=== PATIENT | male | born 1945 | race Caucasian/White ===

== ENCOUNTER 2019-10-06 06:06 | Inpatient (IN) ==
[2019-10-06] MEDS ORDERED: CeFAZolin Syr 2,000MG/20 ML 2,000 MG/20 ML SYRINGE IVPB ONE (06:22)
[2019-10-06] MEDS ORDERED: Ringers Solution, Lactated 1,000 ML IVC SCH ×2 (06:30→09:47)
[2019-10-06] MEDS ORDERED: *HR* Succinylcholine 200 MG/10 ML VIAL IVP ONE (07:06)
[2019-10-06] MEDS ORDERED: Lidocaine HCL 4 ML Topical Solution (Laryng-O-Jet Kit Sterile Pak) TP ONE (07:06)
[2019-10-06] MEDS ORDERED: *HR* Rocuronium Bromide 50 MG/5 ML VIAL ONE (07:06)
[2019-10-06] MEDS ORDERED: Lidocaine -MPF 2% 2 ML VIAL ONE (07:06)
[2019-10-06] MEDS ORDERED: Ondansetron 4 MG/2 ML VIAL ONE (07:06)
[2019-10-06] MEDS ORDERED: Dexamethasone 4 MG/ML VIAL ONE (07:06)
[2019-10-06] MEDS ORDERED: *HR* Propofol 200 MG/20 ML VIAL IVP ONE (07:07)
[2019-10-06] MEDS ORDERED: *HR* FentaNYL (PF) 100 MCG/2 ML VIAL ONE (07:07)
[2019-10-06] MEDS ORDERED: *HR* Midazolam HCl 2 MG/2 ML VIAL ONE (07:08)
[2019-10-06] MEDS ORDERED: Acetaminophen IV 1,000 MG/100 ML INFUS..BTL IVPB ONE (07:13)
[2019-10-06] MEDS ORDERED: Ethanol\\Acetic Acid\\Na Ace\\Ben 1,000 ML IRRIG.SOLN IR ONE (07:15)
[2019-10-06] MEDS ORDERED: ROPIVACAINE/PF/NS 0.25% 1 EACH SYRINGE INTRAART ONE (07:25)
[2019-10-06] MEDS ORDERED: Ropivacaine/PF 0.5% 30 ML VIAL ONE (07:25)
[2019-10-06] MEDS ORDERED: Ondansetron 4 MG/2 ML VIAL IVP ONE (08:13)
[2019-10-06] MEDS ORDERED: *HR* OxyCODONE Immed Rel 5 MG TABLET PO PRN ×2 (08:13→09:47)
[2019-10-06] MEDS ORDERED: EPHEDrine 50 MG/ML VIAL ONE (08:16)
[2019-10-06 09:39] LABS: Hematocrit 47.1 % (37.5-50.1); Hemoglobin 15.6 g/dL (12.9-16.9)
[2019-10-06] MEDS ORDERED: Naloxone 0.4 MG/ML INJ IVP PRN (09:47)
[2019-10-06] MEDS ORDERED: *HR* OxyCODONE/APAP 5/325 TABLET PO PRN (09:47)
[2019-10-06] MEDS ORDERED: Ondansetron 4 MG/2 ML VIAL IVP PRN (09:47)
[2019-10-06] MEDS ORDERED: Sennosides 8.6 MG TABLET PO PRN (09:47)
[2019-10-06] MEDS ORDERED: MOM Conc 10 ML UD.LIQ PO PRN (09:47)
[2019-10-06] MEDS ORDERED: *HR* Enoxaparin 30 MG/0.3 ML SYRINGE SQ SCH (18:00)
[2019-10-06] MEDS: *HR* Enoxaparin 30 MG/0.3 ML SYRINGE SQ SCH (18:26)
[2019-10-06] MEDS ORDERED: Latanoprost 2.5 ML BOTTLE BOTH EYES SCH (21:00)
[2019-10-07 01:26] LABS: Hematocrit 44.7 % (37.5-50.1); Hemoglobin 15.1 g/dL (12.9-16.9)
[2019-10-07 01:45] LABS: BUN/Creatinine Ratio 32 (6-26); Blood Urea Nitrogen 21 mg/dL (8-23); Calcium 8.9 mg/dL (8.6-10.3); Carbon Dioxide 25 mEq/L (23-29); Chloride 105 mEq/L (98-107); Glucose 115 mg/dL (70-105); Osmolality,Calculated 286 (280-300); Potassium 4.1 mEq/L (3.5-5.1); Sodium 136 mEq/L (136-145); eGFR For African Americans > 60 (> 60); eGFR For Non-African Americans > 60 (> 60)
[2019-10-07] MEDS: *HR* Enoxaparin 30 MG/0.3 ML SYRINGE SQ SCH (05:35)
[2019-10-07] MEDS ORDERED: Ketorolac 30 MG/ML VIAL IVP PRN (06:27)
[2019-10-07 11:16] VITALS: BP 122/73
== END 2019-10-07 12:41 | disposition home health service (06) | DRG 483 ==
LOC: SAMDAY 06:06 → 3NENU 06:29
PROVIDERS: ADMIT Orthopaedic Surgery; ATTEND Orthopaedic Surgery